=== PATIENT | male | born 1970 | race Caucasian/White ===

== ENCOUNTER 2019-08-10 16:28 | Emergency (ER) | payer OTHER ==
[~2019-08-10] VITALS: Ht 172.7 cm; Wt 97.5 kg
[2019-08-10 17:47] LABS: HEMATOCRIT 31.2 % (42.0-52.0); HEMOGLOBIN 9.3 gm/dL (14.0-18.0); MCH 22.1 pg (26.0-34.0); MCHC 29.9 g/dL (28.0-37.0); MCV 73.9 fL (80.0-100.0); PLATELET COUNT 278 thou/uL (150-400); RBC 4.22 mil/uL (4.50-6.00); RDW 20.2 % (10.5-14.5); WBC 5.7 thou/uL (4.0-11.0)
[2019-08-10 17:54] LABS: CALCIUM 8.6 mg/dL (8.5-10.1); CREATININE 0.9 mg/dL (0.7-1.3); POTASSIUM 4.1 mmol/L (3.5-5.1)
[2019-08-10 17:59] LABS: APTT 32.9 Seconds (24.5-32.8); INR 1.1; PROTIME 11.7 Seconds (9.3-11.4)
[2019-08-10 18:00] LABS: TOTAL BILIRUBIN 0.5 mg/dL (<0.1-1.0); TOTAL PROTEIN 6.8 g/dL (6.4-8.2)
[2019-08-10 18:13] LABS: ABSOLUTE NEUTROPHILS 4.3 thou/uL (1.4-8.2); PLATELET ESTIMATE NORMAL
[2019-08-10 18:14] LABS: ANISOCYTOSIS 2+; MICROCYTES 2+
[2019-08-10] MEDS ORDERED: PREDNISONE 10 M10 MG PO (18:39)
[2019-08-10 19:20] VITALS: BP 135/88
== END 2019-08-10 18:55 | disposition home or self-care (01) ==
LOC: ER 16:28
PROVIDERS: Physician Assistant
DX: M13.842 Other specified arthritis, left hand (principal); M13.841 Other specified arthritis, right hand; M13.831 Other specified arthritis, right wrist; M13.832 Other specified arthritis, left wrist; R51 Headache; D64.9 Anemia, unspecified